=== PATIENT | female | born 1955 | race Hispanic/Latino ===

== ENCOUNTER 2018-04-05 12:17 | Emergency (ER) | payer MEDICAID, OTHER ==
[2018-04-05 12:28] VITALS: BP 163/90; PULSE 92; RESP 18; TEMP 98.9; O2SAT 100
--- NOTE | 2018-04-05 17:11 | C.PDOC ---
History Of Present Illness 63 y/o female presents to the ED complaining of right eye redness and injection since this morning. Also reports discharge from the eye with excessive tearing, and mild change in vision. No pain with eye movement. Time Seen by Provider: 04/05/18 12:35 Chief Complaint (Nursing): Eye Problem History Per: Patient History/Exam Limitations: no limitations Onset/Duration Of Symptoms: Hrs Current Symptoms Are (Timing): Still Present Past Medical History Reviewed: Historical Data, Nursing Documentation, Vital Signs Vital Signs: Last Vital Signs Temp 98.9 F 04/05/18 12:25 Pulse 92 H 04/05/18 12:25 Resp 18 04/05/18 12:25 BP 163/90 H 04/05/18 12:25 Pulse Ox 100 04/05/18 17:13 - Medical History PMH: No Chronic Diseases Surgical History: No Surg Hx Family History: States: No Known Family Hx - Social History Hx Alcohol Use: No Hx Substance Use: No Review Of Systems Except As Marked, All Systems Reviewed And Found Negative. Eyes: Positive for: Vision Change (mild), Redness, Other (discharge and tearing) . Negative for: Pain Physical Exam - Physical Exam Appears: Non-toxic, No Acute Distress Skin: Normal Color, Warm, Dry Head: Atraumatic, Normacephalic Eye(s): bilateral: PERRL, EOMI, right: Other (conjunctival injection, globe is soft on palpation, no tenderness) Oral Mucosa: Moist Neck: Normal ROM, Supple Chest: Symmetrical Respiratory: No Accessory Muscle Use Extremity: Bilateral: Atraumatic, Normal ROM Neurological/Psych: Oriented x3, Normal Speech ED Course And Treatment O2 Sat by Pulse Oximetry: 100 (RA) Pulse Ox Interpretation: Normal Medical Decision Making Medical Decision Making: Initial Impression: 63 y/o F with conjunctivitis Time: 12:46 Plan: Patient is stable for discharge home. Provided prescription for Polytrim eye drops. Patient is understanding of and agrees to discharge plan. Disposition Counseled Patient/Family Regarding: Diagnosis, Need For Followup, Rx Given - Disposition Referrals: Laura Burt, [Non-Staff] - Disposition: HOME/ ROUTINE Disposition Time: 12:46 Condition: GOOD Additional Instructions: EDGAR RODRIGUEZ, thank you for letting us take care of you today. Your provider was Jake Kauffman DO and you were treated for EYE PAIN. The emergency medical care you received today was directed at your acute symptoms. If you were prescribed any medication, please fill it and take as directed. It may take several days for your symptoms to resolve. Return to the Emergency Department if your symptoms worsen, do not improve, or if you have any other problems. Please contact your doctor or call one of the physicians/clinics you have been referred to that are listed on the Patient Visit Information form that is included in your discharge packet. Bring any paperwork you were given at discharge with you along with any medications you are taking to your follow up visit. Our treatment cannot replace ongoing medical care by a primary care provider outside of the emergency department. Thank you for allowing the [facility] team to be part of your care today. Follow up with your primary care doctor in 2-3 days for re-evaluation and further management. Prescriptions: Polymyxin/Trimethoprim Sulfate [Polytrim Ophth Soln] 2 drop OD Q4 #1 bottle Instructions: Conjunctivitis ([place]) Forms: [employer] (Lithuanian) - POA Present On Arrival: None - Clinical Impression Clinical Impression: Conjunctivitis - Scribe Statement The provider has reviewed the documentation as recorded by the Scribe (Elis Villagran) Provider Attestation: All medical record entries made by the Scribe were at my direction and personally dictated by me. I have reviewed the chart and agree that the record accurately reflects my personal performance of the history, physical exam, medical decision making, and the department course for this patient. I have also personally directed, reviewed, and agree with the discharge instructions and disposition.
== END 2018-04-05 13:00 | disposition home or self-care (01) ==
LOC: C.ER 12:17
DX: H10.9 Unspecified conjunctivitis (principal)